=== PATIENT | female | born 1975 | race Caucasian/White ===

== ENCOUNTER → 2017-08-14 | Outpatient (CLI) | payer OTHER | LOC: M.RAD 10:58 | DX: Z12.31 Encounter for screening mammogram for malignant neoplasm of breast (principal) ==

== ENCOUNTER → 2017-09-01 | Outpatient (CLI) | payer OTHER | LOC: M.ULTRA 11:24 | DX: N94.6 Dysmenorrhea, unspecified (principal) ==

== ENCOUNTER 2019-03-27 13:43 | Emergency (ER) | payer OTHER ==
[~2019-03-27] VITALS: Ht 157.5 cm; Wt 69.8 kg
[2019-03-27 15:03] LABS: URINE BILIRUBIN NEGATIVE (Negative); URINE BLOOD NEGATIVE (Negative); URINE CLARITY CLEAR; URINE COLOR YELLOW; URINE GLUCOSE-RANDOM NEGATIVE (Negative); URINE KETONES 1+ (Negative); URINE LEUKOCYTES NEGATIVE (Negative); URINE NITRITE NEGATIVE (Negative); URINE PROTEIN NEGATIVE (Negative); URINE SPECIFIC GRAVITY 1.015 (1.005-1.030); URINE UROBILINOGEN 0.2 E.U./dl (0.2-1.0)
[2019-03-27 15:03] LABS: ABSOLUTE BASOPHILS 0.1 thou/uL (0.0-0.2); ABSOLUTE EOSINOPHILS 0.1 thou/uL (0.0-0.7); ABSOLUTE LYMPHOCYTES 1.8 thou/uL (0.8-5.3); ABSOLUTE MONOCYTES 0.5 thou/uL (0.0-1.2); ABSOLUTE NEUTROPHILS 4.8 thou/uL (1.6-8.1); BASOPHILS 0.8 %; HEMATOCRIT 39.3 % (37.0-47.0); HEMOGLOBIN 13.2 gm/dL (12.0-15.0); LYMPHOCYTES 24.8 %; MCH 28.4 pg (26.0-34.0); MCHC 33.6 g/dL (28.0-37.0); MCV 84.7 fL (80.0-100.0); MPV 7.5 fl. (7.2-11.1); NUCLEATED RBCS 0 /100WBC; PLATELET COUNT* 282 thou/uL (150-400); POLYS 66.4 %; RBC 4.64 mil/uL (4.20-5.00); RDW-CV 13.2 % (10.5-14.5); WBC 7.2 thou/uL (4.0-11.0)
[2019-03-27 15:15] LABS: ANION GAP 4 mmol/L (7-16); BUN 13 mg/dL (7-18); CHLORIDE 106 mmol/L (98-107); CO2 33 mmol/L (21-32); CREATININE 0.9 mg/dL (0.6-1.3); GLUCOSE 112 mg/dL (70-99); POTASSIUM 3.7 mmol/L (3.5-5.1); SODIUM 143 mmol/L (136-145)
[2019-03-27 15:25] LABS: ALBUMIN 3.5 g/dL (3.4-5.0); ALKALINE PHOSPHATASE 41 U/L (46-116); SGOT 19 U/L (15-37); SGPT 26 U/L (30-65); TOTAL BILIRUBIN 0.3 mg/dL (<0.1-1.0); TOTAL PROTEIN 6.9 g/dL (6.4-8.2); TROPONIN-I LEVEL <0.06 ng/mL (<0.06)
[2019-03-27 17:35] LABS: INFLUENZA A ANTIGEN Negative (Negative); INFLUENZA B ANTIGEN Negative (Negative)
[2019-03-27 17:58] VITALS: BP 118/76
--- NOTE | 2019-03-28 17:17 | EKG ---
[place] [address] ELECTROCARDIOGRAM REPORT Name: ANANDDRAGAN MEJIA Room: 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
== END 2019-03-27 17:59 | disposition home or self-care (01) ==
LOC: M.ERS 13:43
PROVIDERS: Personal Emergency Response Attendant
DX: R55 Syncope and collapse (principal); Z90.49 Acquired absence of other specified parts of digestive tract; Z88.0 Allergy status to penicillin

== ENCOUNTER → 2020-12-01 | Outpatient (CLI) | payer OTHER | LOC: M.ULTRA 10:13 | PROVIDERS: ATTEND Specialist | DX: U07.1 COVID-19 (principal); M79.89 Other specified soft tissue disorders; R23.8 Other skin changes; R20.2 Paresthesia of skin; I49.9 Cardiac arrhythmia, unspecified; R29.898 Other symptoms and signs involving the musculoskeletal system ==